=== PATIENT | male | born 1995 | race Two or more races ===

== ENCOUNTER 2017-01-05 13:33 | Emergency (ER) | payer SELFPAY ==
[~2017-01-05] VITALS: Ht 157.5 cm; Wt 57.2 kg
[2017-01-05] MEDS ORDERED: ACETAMINOPHEN 325 MG TAB PO ONE (14:00)
[2017-01-05 15:09] VITALS: BP 135/85
[2017-01-05] MEDS ORDERED: cefTRIAXone SOD 1,000 MG VL IM ONE (16:00)
[2017-01-05] MEDS ORDERED: methylPREDNISolone SOD SUCC 125 MG/2 ML VL IM ONE (16:00)
== END 2017-01-05 16:18 | disposition home or self-care (01) ==
LOC: ER 13:40
DX: J03.00 Acute streptococcal tonsillitis, unspecified (principal)
CPT/HCPCS: 71020; 96372; 99284; J0696; J2930

== ENCOUNTER 2018-08-22 08:23 | Emergency (ER) | payer SELFPAY ==
[~2018-08-22] VITALS: Ht 162.6 cm; Wt 61.7 kg
[2018-08-22 08:48] VITALS: BP 149/99
== END 2018-08-22 09:20 | disposition home or self-care (01) ==
LOC: ER 08:23
DX: T16.2XXA Foreign body in left ear, initial encounter (principal); Z88.8 Allergy status to other drugs, medicaments and biological substances; X58.XXXA Exposure to other specified factors, initial encounter; Y93.89 Activity, other specified; Y99.8 Other external cause status; Y92.89 Other specified places as the place of occurrence of the external cause

== ENCOUNTER 2021-10-31 07:03 | Emergency (ER) | payer SELFPAY ==
[~2021-10-31] VITALS: Ht 162.6 cm; Wt 69.9 kg
[2021-10-31 09:50] VITALS: BP 149/97
== END 2021-10-31 10:56 | disposition home or self-care (01) ==
LOC: ER 07:03
DX: H60.92 Unspecified otitis externa, left ear (principal); Z88.8 Allergy status to other drugs, medicaments and biological substances